=== PATIENT | male | born 1995 | race Two or more races ===

== ENCOUNTER 2022-09-08 19:59 | Emergency (ER) | payer SELFPAY ==
[~2022-09-08] VITALS: Ht 172.7 cm; Wt 60.0 kg
[2022-09-08] MEDS ORDERED: HYDROcodone-ACET 10/325MG TAB PO ONE (20:30)
[2022-09-08] MEDS ORDERED: LIDOCAINE 1% HCL (LOCAL ANESTH.) INJ 20ML MDV ID ONE (21:00)
[2022-09-08] MEDS ORDERED: KETAMINE 50mg/ML 10ml Vial (500mg/10ml) IV ONE (21:15)
[2022-09-09] MEDS ORDERED: ONDANSETRON HCL 4 MG/2 ML VIAL IV ONE (01:00)
[2022-09-09] MEDS ORDERED: HYDR-4798 PO (01:08)
[2022-09-09 01:55] VITALS: BP 107/59
== END 2022-09-09 01:10 | disposition home or self-care (01) ==
LOC: ER 19:59
DX: S52.501A Unspecified fracture of the lower end of right radius, initial encounter for closed fracture (principal); W11.XXXA Fall on and from ladder, initial encounter; Y93.89 Activity, other specified; Y92.89 Other specified places as the place of occurrence of the external cause; Y99.8 Other external cause status
CPT/HCPCS: 25605; 73090; 93005; 96374; 99285; J2405